=== PATIENT | male | born 1985 | race African-American/Black ===

== ENCOUNTER 2019-08-09 18:40 | Emergency (ER) | payer MEDICAID ==
[~2019-08-09] VITALS: Ht 172.7 cm; Wt 63.5 kg
[2019-08-09 18:45] VITALS: BP 145/88
[2019-08-09] MEDS ORDERED: IBUPROFEN 600 MG TABLET PO ONE ×2 (19:00→19:55)
[2019-08-09] MEDS ORDERED: HYDROCODONE/APAP 5/325MG 1 EACH TABLET PO ONE (19:00)
== END 2019-08-09 20:23 | disposition home or self-care (01) ==
LOC: ER 18:45
DX: S60.221A Contusion of right hand, initial encounter (principal); S60.811A Abrasion of right wrist, initial encounter; F10.10 Alcohol abuse, uncomplicated; Y90.9 Presence of alcohol in blood, level not specified; W22.8XXA Striking against or struck by other objects, initial encounter; Y93.89 Activity, other specified; Y92.89 Other specified places as the place of occurrence of the external cause; Y99.8 Other external cause status
CPT/HCPCS: 73130-TC